=== PATIENT | female | born 1990 | race Caucasian/White ===

== ENCOUNTER → 2021-01-18 | Outpatient (CLI) | payer OTHER ==
--- NOTE | 2021-01-18 11:24 | KCIC ---
Examination: MRI of the left knee without contrast HISTORY: History of left knee pain COMPARISON: None available Technique: Multiplanar, multisequence MR imaging of the left knee was performed without contrast FINDINGS: The anterior cruciate ligament, posterior cruciate ligament appears intact. The medial meniscus appea rs intact. There is blunting and pain at the junction of the anterior horn and and body of the lateral meniscus. The extensor mechanism appears intact. The medial collateral ligament is intact. Lateral collateral l igamentous complex including the fibular collateral ligament comparison comparison is appropriate pos ition appears intact. Small knee joint effusion. There is moderate sized popliteal cyst identified with fluid extending superiorly. The medial, latera l retinaculum appears intact. IMPRESSION: 1. Blunting and pain at the junction of the anterior horn and body of the lateral meniscus likely te ar. 2. Moderate sized popliteal cyst with fluid extending superiorly. 3. Small knee joint effusion. Electronically signed by: Chavo Mcdaniel MD (01/18/2021 11:21 AM) [id number]
== END ==
LOC: KCIC MRI 09:42
PROVIDERS: ATTEND Physician Assistant
DX: M71.22 Synovial cyst of popliteal space [Baker], left knee (principal); M25.462 Effusion, left knee; M25.562 Pain in left knee
CPT/HCPCS: 73721